=== PATIENT | male | born 1970 | race Caucasian/White ===

== ENCOUNTER 2019-04-26 16:53 | Emergency (ER) | payer BC ==
[2019-04-26 17:45] VITALS: BP 153/85
--- NOTE | 2019-04-26 18:15 | UC ---
Hand/Wrist HPI - HPI Summary HPI Summary: left wrist pain for past 3 weeks, denies any trauma or injury. Pain with lateral movement. - History Of Current Complaint Chief Complaint: UCUpperExtremity Stated Complaint: LEFT WRIST COMPLAINT Time Seen by Provider: 04/26/19 18:08 Hx Obtained From: Patient ?: No Onset/Duration: Sudden Onset, Lasting Weeks Severity Initially: Severe Severity Currently: Severe Pain Intensity: 8 Aggravating Factor(s): Movement, Lifting, Flexion, Extension - Allergies/Home Medications Allergies/Adverse Reactions: Allergies Allergy/AdvReac Type Severity Reaction Status Date / Time No Known Allergies Allergy Verified 04/26/19 17:45 Home Medications: Home Medications Amlodipine Besylate/Benazepril [Lotrel 5-20 mg Capsule] 1 each PO DAILY [History Confirmed 04/26/19] Carvedilol TAB* [Coreg TAB*] 6.25 mg PO BID 04/26/19 [History Confirmed 04/26/19 ] PMH/Surg Hx/FS Hx/Imm Hx Previously Healthy: Yes - Surgical History Surgical History: Yes Surgery Procedure, Year, and Place: bilateral knee surgery - Family History Known Family History: Positive: Hypertension - Social History Alcohol Use: Occasionally Substance Use Type: None Smoking Status (MU): Never Smoked Tobacco Review of Systems All Other Systems Reviewed And Are Negative: Yes Musculoskeletal: Positive: Arthralgia, Decreased ROM, Myalgia Is Patient Immunocompromised?: No Physical Exam Triage Information Reviewed: Yes Appearance: No Pain Distress, Well-Nourished, Pain Distress Vital Signs: Initial Vital Signs Temp 98.4 F 04/26/19 17:41 Pulse 104 04/26/19 17:41 Resp 16 04/26/19 17:41 BP 153/85 04/26/19 17:41 Pulse Ox 99 04/26/19 17:41 Vital Signs Reviewed: Yes Eye Exam: Normal ENT Exam: Normal Respiratory Exam: Normal Cardiovascular Exam: Normal Musculoskeletal: Positive: Strength Intact - rn admit strength is equal, ROM Limited @ - in radial and ulnar deviation, Edema @ - mild pocet of edema on radial side of wrist Skin Exam: Normal Hand/Wrist Course/Dx - Course Course Of Treatment: hx obtained, exam performed ,meds reviewed, xray obtainted no apparent fracture , treated for De quervains Tendonitis - Differential Dx/Diagnosis Differential Diagnosis/HQI/PQRI: Fracture, Sprain, Strain, Tendonitis, Tenosynovitis Provider Diagnosis: De Quervain's disease (tenosynovitis) Discharge ED - Sign-Out/Discharge Documenting (check all that apply): Patient Departure All imaging exams completed and their final reports reviewed: No Studies - Discharge Plan Condition: Stable Disposition: HOME Referrals: David Dang MD [Medical Doctor] - No Primary Care Phys,NOPCP [Primary Care Provider] - Additional Instructions: De Quervains tenosynovitis treatment Treatment for de Quervains tenosynovitis focuses on reducing pain and swelling. It includes: Applying heat or ice to the affected area. Taking a nonsteroidal anti-inflammatory drug (NSAID). These include ibuprofen ( Advil, Motrin) 400-600 mg every 4-6 hours or naproxen (Aleve) 1-2 tabs every 12 hours. Avoiding activities that cause pain and swelling. Especially avoid those that involve repetitive hand and wrist motions. Wearing a splint 24 hours a day for 4 to 6 weeks to rest your thumb and wrist. Getting injections of steroids or a local anesthetic (numbing medicine) into the tendon sheath. These injections are very effective and are used regularly. A physical therapist or occupational therapist can show you how to change the way you move. This can reduce stress on your wrist. He or she can also teach you exercises to strengthen your muscles. Most people notice improvement after 4 to 6 weeks of treatment. They are able to use their hands and wrists without pain once the swelling is gone. Will I need surgery for de Quervains tenosynovitis? You might need surgery if your case is severe or if other treatments dont relieve your pain. During outpatient surgery, the surgeon makes a small cut in the sheath around the swollen tendons. This provides more room for the tendons to move. After surgery, you will need to do physical therapy to strengthen your wrist and thumb. This will help keep the problem from coming back. Once the area has healed and returned to full strength, you should have normal use of your hand. Living with de Quervains tenosynovitis De Quervains tenosynovitis is a temporary condition. It generally responds well to treatment. It is important to treat de Quervains tenosynovitis. If this condition isnt treated, it can permanently limit your movement or cause the tendon sheath to burst. Once your symptoms are better, work to prevent the condition from happening again. - Billing Disposition and Condition Condition: STABLE Disposition: Home - Attestation Statements Provider Attestation: I was available for consult. This patient was seen by the HAYDER. The patient was not presented to, seen by, or examined by me. -Shannan
--- NOTE | 2019-04-27 12:25 | UC ---
- Progress Note Progress Note: No change in manangement Patient Name: HARRIET DE LEON Medical Record#: [id number] Ordering Physician: Nicky Starkey NP Acct.#: [id number] : 1970 Age: 48 Sex: M Location: [facility] Exam Date: 04/26/191807 ADM Status: [facility] Order Information: WRIST LEFT 3+ VWS Accession Number: [id number] CPT: 45594 Indication: Left wrist pain 3 views of the wrist demonstrates no fracture. No other bone or joint abnormality is identified. IMPRESSION: NO FRACTURE OF THE WRIST IS NOTED. R1NF Preliminary Imaging Read R1NF <Electronically signed by Luna Carias MD in [place]> 04/27/19812 Dictated By: Luna Carias MD Dictated Date/Time: 04/27/19812 Transcribed Date/Time: 04/27/19812 Copy to: CC:Heidi Al MD; Nicky Starkey NP; No Primary Care Phys,NOPCP Imaging - [facility] [address] [address] ph ([phone]) ph ) ph [phone]) This report is only to be considered final once signed by the Provider(s) as displayed in the "<Electronically Signed by >" field (s). Absence of a signature indicates the report is in a draft status and still needs to be finalized. In the event this document was created by someone other than the signing Provider, the individual initiating the document will be listed in the "Entered by:" or "Dictated by:" love. 1 of 1 Course/Dx - Diagnoses Provider Diagnoses: De Quervain's disease (tenosynovitis) Discharge ED - Sign-Out/Discharge Documenting (check all that apply): Post-Discharge Follow Up All imaging exams completed and their final reports reviewed: Yes - Discharge Plan Condition: Stable Disposition: HOME Referrals: David Dang MD [Medical Doctor] - No Primary Care Phys,NOPCP [Primary Care Provider] - Additional Instructions: De Quervains tenosynovitis treatment Treatment for de Quervains tenosynovitis focuses on reducing pain and swelling. It includes: Applying heat or ice to the affected area. Taking a nonsteroidal anti-inflammatory drug (NSAID). These include ibuprofen ( Advil, Motrin) 400-600 mg every 4-6 hours or naproxen (Aleve) 1-2 tabs every 12 hours. Avoiding activities that cause pain and swelling. Especially avoid those that involve repetitive hand and wrist motions. Wearing a splint 24 hours a day for 4 to 6 weeks to rest your thumb and wrist. Getting injections of steroids or a local anesthetic (numbing medicine) into the tendon sheath. These injections are very effective and are used regularly. A physical therapist or occupational therapist can show you how to change the way you move. This can reduce stress on your wrist. He or she can also teach you exercises to strengthen your muscles. Most people notice improvement after 4 to 6 weeks of treatment. They are able to use their hands and wrists without pain once the swelling is gone. Will I need surgery for de Quervains tenosynovitis? You might need surgery if your case is severe or if other treatments dont relieve your pain. During outpatient surgery, the surgeon makes a small cut in the sheath around the swollen tendons. This provides more room for the tendons to move. After surgery, you will need to do physical therapy to strengthen your wrist and thumb. This will help keep the problem from coming back. Once the area has healed and returned to full strength, you should have normal use of your hand. Living with de Quervains tenosynovitis De Quervains tenosynovitis is a temporary condition. It generally responds well to treatment. It is important to treat de Quervains tenosynovitis. If this condition isnt treated, it can permanently limit your movement or cause the tendon sheath to burst. Once your symptoms are better, work to prevent the condition from happening again. - Billing Disposition and Condition Condition: STABLE Disposition: Home
== END 2019-04-26 18:48 | disposition home or self-care (01) ==
LOC: UCCORT 16:53
DX: M65.4 Radial styloid tenosynovitis [de Quervain] (principal)
CPT/HCPCS: 99202; G0463